=== PATIENT | male | born 2000 | race Caucasian/White ===

== ENCOUNTER 2019-03-06 18:46 | Emergency (ER) | payer OTHER, BC ==
--- NOTE | 2019-03-06 19:28 | EDM.PDOC ---
ED HPI GENERAL MEDICAL PROBLEM - General Chief Complaint: ENT Problem Stated Complaint: SORE THROAT EAR PAIN Time Seen by Provider: 03/06/19 19:28 - History of Present Illness INITIAL COMMENTS - FREE TEXT/NARRATIVE: 18-year-old male seen in the emergency room with sore throat ear infections and achy all over. This started several days ago he was seen in the walk-in clinic yesterday was started on amoxicillin had no testing done. The patient is unsure what dose of amoxicillin he has on. He feels quite fatigued. Past medical history is otherwise unremarkable. Did find out from the pharmacy that he is taking amoxicillin 875 twice a day for 10 days Throat Pain Score (Numeric/FACES): 8 - Related Data Allergies Allergy/AdvReac Type Severity Reaction Status Date / Time No Known Allergies Allergy Verified 03/06/19 19:10 Home Meds: Home Meds . [No Known Home Meds] 03/06/19 [History] Social & Family History - Tobacco Use Smoking Status *Q: Never Smoker - Caffeine Use Caffeine Use: Reports: None - Recreational Drug Use Recreational Drug Use: No ED ROS ENT - Review of Systems Review Of Systems: See Below Constitutional: Reports: No Symptoms, Fever, Malaise, Weakness. Denies: Chills HEENT: Reports: Ear Pain, Throat Pain Respiratory: Denies: Shortness of Breath, Wheezing, Pleuritic Chest Pain Cardiovascular: Reports: No Symptoms Endocrine: Reports: No Symptoms GI/Abdominal: Reports: No Symptoms : Reports: No Symptoms Musculoskeletal: Reports: No Symptoms Skin: Reports: No Symptoms, Other Psychiatric: Reports: No Symptoms ED EXAM, ENT - Physical Exam Exam: See Below Exam Limited By: No Limitations General Appearance: Alert, No Apparent Distress Eye Exam: Bilateral Eye: Normal Inspection Ears: Normal External Exam, Normal Canal, Hearing Grossly Normal, Normal TMs, Other (Cerumen noted in both canals not obstructive) Nose: Normal Inspection, Normal Mucousa, No Blood, Clear Rhinorrhea Mouth/Throat: Normal Inspection, Normal Gums, Normal Lips, Normal Teeth, Other ( He has thick exudative whitish plaque like discharge in the back of his throat) Head: Atraumatic, Normocephalic Neck: Normal Inspection, Supple, Non-Tender, Full Range of Motion, Lymphadenopathy (L), Lymphadenopathy (R) Respiratory/Chest: No Respiratory Distress, Lungs Clear, Normal Breath Sounds Cardiovascular: Normal Peripheral Pulses, Regular Rate, Rhythm, No Edema GI/Abdominal: Normal Bowel Sounds, Soft, Other (No organomegaly. He has a little bit of tenderness over the spleen tip and over the liver) Back: Normal Inspection. No: CVA Tenderness (L), CVA Tenderness (R) Extremities: Normal Inspection, No Pedal Edema Neurological: Alert, Oriented, Normal Cognition Course - Vital Signs Last Recorded V/S: Last Vital Signs Temp 36.1 C 03/06/19 19:05 Pulse 88 03/06/19 19:05 Resp 18 03/06/19 19:05 BP 135/83 03/06/19 19:05 Pulse Ox 100 03/06/19 19:05 - Orders/Labs/Meds Labs: Laboratory Tests 03/06/19 Range/Units 20:10 Monoscreen Positive H (NEGATIVE) - Re-Assessments/Exams Free Text/Narrative Re-Assessment/Exam: 03/06/19 21:17 [place] spot was checked as it was consistent with his exam and it did come back positive. We will have him stop his amoxicillin. We discussed avoiding strenuous physical activity no contact sports, avoid any trauma. Follow-up in the clinic next week for recheck. Departure - Departure Time of Disposition: 21:22 Disposition: Home, Self-Care 01 Clinical Impression: Mononucleosis syndrome - Discharge Information Referrals: PCP,None [Primary Care Provider] - Forms: ED Department Discharge Additional Instructions: Return to the emergency room with any questions problems or worsening symptoms. Avoid heavy lifting contact sports. Push lots of fluids Follow-up in the Hospital clinic next week for recheck [id number]
== END 2019-03-06 21:34 | disposition home or self-care (01) ==
LOC: JD.ED 18:46
DX: B27.90 Infectious mononucleosis, unspecified without complication (principal)
CPT/HCPCS: 36415; 86308; 99283

== ENCOUNTER 2020-03-12 20:19 | Emergency (ER) | payer OTHER, BC ==
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
--- NOTE | 2020-03-13 08:55 | CT ---
Head CT Technique: Multiple axial sections through the brain were obtained. Intravenous contrast was not utilized. Comparison: No prior intracranial imaging is available. Findings: Intracranial: Ventricles along with basal cisterns and sulci over the convexities are within normal limits for the patient's age. No abnormal parenchymal densities are seen. No evidence of intracranial hemorrhage. No midline shift or mass-effect is appreciated. Osseous: Visualized paranasal sinuses and mastoid sinuses are clear. No acute calvarial abnormality is appreciated. Impression: 1. Nothing acute is identified on noncontrast head CT exam. Diagnostic code #1 I agree with preliminary report from [facility], finalized on 03/12/20, 10:08 PM Central Standard Time
== END 2020-03-12 21:46 | disposition home or self-care (01) ==
LOC: JD.ED 20:19
DX: S06.0X0A Concussion without loss of consciousness, initial encounter (principal); F17.210 Nicotine dependence, cigarettes, uncomplicated; W22.8XXA Striking against or struck by other objects, initial encounter
CPT/HCPCS: 70450; 70450-26; 99283; 99284-25

== ENCOUNTER 2022-12-17 23:54 | Emergency (ER) | payer BC, OTHER ==
[2022-12-18] MEDS ORDERED: Aspirin 81 MG Tab.Chew PO ONE (00:13)
[2022-12-18] MEDS ORDERED: Albuterol 0.083% 2.5 MG/3 ML Neb Soln NEB ONE (00:14)
[2022-12-18 00:44] LABS: BASOPHILS PERCENT AUTO 0.5 % (0.0-1.0); EOSINOPHILS ABSOLUTE AUTO 0.1 K/mm3 (0.0-0.4); EOSINOPHILS PERCENT AUTO 1.8 % (0.0-6.0); HEMATOCRIT 42.2 % (42.0-52.0); HEMOGLOBIN 14.9 gm/dl (14.0-18.0); IMMATURE GRAN ABSOLUTE AUTO 0.02 K/mm3 (0.00-0.05); IMMATURE GRAN PERCENT AUTO 0.3 % (0.0-0.4); LYMPHOCYTES ABSOLUTE AUTO 1.9 K/mm3 (1.0-4.8); LYMPHOCYTES PERCENT AUTO 31.3 % (24.0-44.0); MEAN CORPUSCULAR HEMOGLOBIN 29.4 pg (28.0-32.0); MEAN CORPUSCULAR HGB CONC 35.3 g/dl (32.0-36.0); MEAN CORPUSCULAR VOLUME 83.4 fl (83.0-99.0); MONOCYTES ABSOLUTE AUTO 0.3 K/mm3 (0.0-0.8); MONOCYTES PERCENT AUTO 5.5 % (0.0-8.0); NEUTROPHILS ABSOLUTE AUTO 3.7 K/mm3 (1.8-7.7); NEUTROPHILS PERCENT AUTO 60.6 % (41.0-71.0); PLATELET COUNT,PLT 235 K/mm3 (150-400); RED BLOOD CELL COUNT 5.06 M/mm3 (4.52-5.90); WHITE BLOOD CELL COUNT,WBC 6.16 K/mm3 (3.9-11.3)
[2022-12-18 01:08] LABS: A/G RATIO 1.2 (1-2); ALANINE AMINOTRANSFERASE,ALT 41 U/L (16-63); ALBUMIN 4.6 g/dl (3.4-5.0); ALKALINE PHOSPHATASE 105 U/L (46-116); ANION GAP 19.8 (5-15); ASPARTATE AMNIOTRANSFERASE,AST 30 U/L (15-37); BILIRUBIN TOTAL 0.5 mg/dL (0.2-1.0); BLOOD UREA NITROGEN,BUN 8 mg/dL (7-18); BUN/CREATININE RATIO 7.3 (14-18); CALCIUM 9.2 mg/dL (8.5-10.1); CARBON DIOXIDE,CO2 22 mEq/L (21-32); CHLORIDE,CL 107 mEq/L (98-107); CREATININE 1.1 mg/dL (0.7-1.3); EST CRCL DRUG DOSING (CG) 107.84 mL/min; ESTIMATED GFR 97 mL/min (>60); GLUCOSE RANDOM 138 mg/dL (70-99); POTASSIUM,K 3.8 mEq/L (3.5-5.1); PROTEIN TOTAL,TP 8.4 g/dl (6.4-8.2); SODIUM,NA 145 mEq/L (136-145)
[2022-12-18 01:13] LABS: TROPONIN I HIGH SENSITIVITY < 4 pg/mL (<=76)
== END 2022-12-18 01:54 | disposition home or self-care (01) ==
LOC: JD.ED 23:54
DX: R07.89 Other chest pain (principal); J45.21 Mild intermittent asthma with (acute) exacerbation; F17.210 Nicotine dependence, cigarettes, uncomplicated
CPT/HCPCS: 36415; 71046; 80053; 84484; 85025; 93005; 94640; 99285; A9270; J7620-GY